=== PATIENT | male | born 1975 | race American Indian/Alaskan Native ===

== ENCOUNTER 2019-01-02 14:56 | Inpatient (IN) | payer MEDICARE ==
--- NOTE | 2019-01-02 15:50 | Event Note ---
ED Screening Note ED Screening Note: cough, sneezing, body aches last night vomiting and diarrhea- 2 episodes of each no sick contacts +chills missed his dialysis treatment, states he last went on friday This initial assessment/diagnostic orders/clinical plan/treatment(s) is/are subject to change based on patients health status, clinical progression and re- assessment by fellow clinical providers in the ED. Further treatment and workup at subsequent clinical providers discretion. Patient/guardian urged not to elope from the ED as their condition may be serious if not clinically assessed and managed. Initial orders include: labs, flu swab
[2019-01-02 16:36] LABS: Basophils # (Auto) 0.1 K/mm3 (0.0-0.1); Basophils % (Auto) 0.8 % (0.0-1.8); Eosinophils # (Auto) 0.3 K/mm3 (0.0-0.4); Eosinophils % (Auto) 4.3 % (0.0-4.3); Hematocrit 36.7 % (35.5-45.6); Lymphocytes # (Auto) 1.6 K/mm3 (1.2-5.4); Lymphocytes % (Auto) 25.1 % (13.4-35.0); Mean Corpuscular HGB Conc 33 % (32-34); Mean Corpuscular Volume 94 fl (84-94); Monocytes # (Auto) 0.6 K/mm3 (0.0-0.8); Monocytes % (Auto) 8.9 % (0.0-7.3); Platelet Count 147 K/mm3 (140-440)
[2019-01-02 16:39] LABS: Calcium 9.2 mg/dL (8.4-10.2)
--- NOTE | 2019-01-02 16:41 | Event Note ---
Date of service: 01/02/19 Face to Face: This is a 43-year-old gentleman, not known to this provider previously, presenting to the ER with symptoms consistent with dialysis noncompliance. Endorses malaise, fatigue, nausea, cramping, generalized weakness. Reports that his last dialysis session was , over a week ago. He is found to be hypertensive, acidotic, and hyperkalemic. He meets criteria for hospitalization for emergent hemodialysis. We counseled the patient's remain compliant with his outpatient dialysis sessions. He is clinically sober at this time, and currently playing on a cellular phone. Nephrology was contacted by my nurse practitioner juanpablo, and the Hospital physician, Dr. Celsa Mast accepted the patient to the medical service for hypertensive urgency, hyperkalemia, dialysis noncompliance, metabolic acidosis. Vital Signs 01/02/19 01/02/19 15:12 16:28 Temperature 97.7 F 98.3 F Pulse Rate 72 66 Respiratory 17 17 Rate Blood Pressure 179/111 Blood Pressure 180/115 [Left] O2 Sat by Pulse 99 100 Oximetry Lab Results 01/02/19 01/02/19 01/02/19 Range/Units 15:50 16:01 16:01 WBC 6.3 (4.5-11.0) K/mm3 RBC 3.90 (3.65-5.03) M/mm3 Hgb 12.0 (11.8-15.2) gm/dl Hct 36.7 (35.5-45.6) % MCV 94 (84-94) fl MCH 31 (28-32) pg MCHC 33 (32-34) % RDW 14.0 (13.2-15.2) % Plt Count 147 (140-440) K/mm3 Lymph % (Auto) 25.1 (13.4-35.0) % [place] % (Auto) 8.9 H (0.0-7.3) % Eos % (Auto) 4.3 (0.0-4.3) % Baso % (Auto) 0.8 (0.0-1.8) % Lymph # 1.6 (1.2-5.4) K/mm3 [place] # 0.6 (0.0-0.8) K/mm3 Eos # 0.3 (0.0-0.4) K/mm3 Baso # 0.1 (0.0-0.1) K/mm3 Seg Neutrophils % 60.9 (40.0-70.0) % Seg Neutrophils # 3.8 (1.8-7.7) K/mm3 Sodium 141 (137-145) mmol/L Potassium 5.4 H (3.6-5.0) mmol/L Chloride 107.8 H (98-107) mmol/L Carbon Dioxide 16 L (22-30) mmol/L Anion Gap 23 mmol/L BUN 71 H (9-20) mg/dL Creatinine 10.8 H (0.8-1.5) mg/dL Estimated GFR 5 ml/min BUN/Creatinine Ratio 7 % Glucose 88 (75-100) mg/dL Calcium 9.2 (8.4-10.2) mg/dL Influenza A (Rapid) Negative (Negative) Influenza B (Rapid) Negative (Negative)
[2019-01-02] MEDS ORDERED: hydrALAZINE 20 MG/1 ML INJ IV ONE (16:49)
[2019-01-02] MEDS ORDERED: ONDANSETRON 4 MG ODT TAB PO PRN (16:49)
--- NOTE | 2019-01-02 16:52 | Emergency Department Report ---
ED N/V/D HPI - General Chief complaint: Nausea/Vomiting/Diarrhea Stated complaint: COUGH DIARRHEA VOMITING Time Seen by Provider: 01/02/19 15:48 Source: patient Mode of arrival: Ambulatory Limitations: No Limitations - History of Present Illness MD complaint: nausea, vomiting (x 2), diarrhea (multiple times) -: Sudden, Last night Description of Vomiting: food contents Description of Diarrhea: green Radiation: none Severity: moderate Consistency: intermittent Improves with: none Worsens with: none Associated Symptoms: myalgias, malaise, nausea/vomiting - Related Data Allergies Allergy/AdvReac Type Severity Reaction Status Date / Time No Known Allergies Allergy Unverified 01/02/19 15:19 ED Review of Systems ROS: Stated complaint: COUGH DIARRHEA VOMITING Other details as noted in HPI Comment: All other systems reviewed and negative Gastrointestinal: nausea, vomiting. denies: abdominal pain Musculoskeletal: myalgia Neurological: headache ED Past Medical Hx - Past Medical History Additional medical history: PT ON DIAYLISIS ON Fri AND SAT - Surgical History Past Surgical History?: No - Social History Smoking Status: Never Smoker ED Physical Exam - General Limitations: No Limitations General appearance: alert, in no apparent distress - Head Head exam: Present: atraumatic - Eye Eye exam: Present: other (right cornea cloudy ) - Neck Neck exam: Present: full ROM - Respiratory Respiratory exam: Present: normal lung sounds bilaterally. Absent: wheezes, rales, rhonchi - GI/Abdominal GI/Abdominal exam: Present: soft, normal bowel sounds. Absent: distended, tenderness, guarding - Rectal Rectal exam: Present: deferred - Expanded Upper Extremity Exam Right Upper Arm exam: Present: other (right forearm fistula + bruit + shrill) - Psychiatric Psychiatric exam: Present: normal affect - Skin Skin exam: Present: warm, dry, intact, normal color. Absent: cyanosis, diaphoretic ED Course Vital Signs 01/02/19 01/02/19 15:12 16:28 Temperature 97.7 F 98.3 F Pulse Rate 72 66 Respiratory 17 17 Rate Blood Pressure 179/111 Blood Pressure 180/115 [Left] O2 Sat by Pulse 99 100 Oximetry ED Medical Decision Making - Lab Data Result diagrams: 01/02/19 16:01 01/02/19 16:01 - Medical Decision Making This is a 43-year-old male. Presented to the emergency room with complaints of nausea vomiting,diarrhea, bodyaches and generalized weakness. Patient has a history of end-stage renal disease. Started dialysis March 2018. Dialyzed 3 d ays a week. He missed dialysis this week. States he had to work. He denies fever, chest pain and sob. Labs shows hyperkalemia, hyperchloremia,metabolic acidosis, Discussed with Dr Clements Decontaminator Discussed with Dr. Magaña. Bridge orders placed for [facility] admission Critical care attestation.: If time is entered above; I have spent that time in minutes in the direct care of this critically ill patient, excluding procedure time. ED Disposition Clinical Impression: Metabolic acidosis, Hyperkalemia, Hyperchloremia Disposition: OP ADMIT IP TO THIS HOSP Is pt being admited?: Yes Does the pt Need Aspirin: No Time of Disposition: 17:19
--- NOTE | 2019-01-02 17:38 | History and Physical Report ---
History of Present Illness Date of examination: 01/02/19 Date of admission: 01/02/2019 Chief complaint: Vomiting and diarrhea since yesterdayx multiple times Missed hemodialysis for 1 week History of present illness: 43-year-old -Congolese male with a history of hypertension, end-stage renal disease comes in for vomiting and diarrhea since yesterday. Patient missed dialysis for 1 week because of his working schedule and conflict with the schedule. Never tried peritoneal dialysis. No history of diabetes. 7 onset of vomiting and diarrhea since yesterday 3-4 times of Vomiting. Loose watery stools multiple times since yesterday. No known precipitating factor. No shortness of breath or chest pain. No recent travel. 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 This happened couple of years ago Past Medical History Additional medical history: PT ON DIAYLISIS ON Fri AND SAT Surgical History No Social History Smoking Status: Never Smoker Family history Htn Review of Systems ROS: Stated complaint: COUGH DIARRHEA VOMITING Other details as noted in HPI Comment: All other systems reviewed and negative Gastrointestinal: nausea, vomiting since yesterday multiple times denies: abdominal pain Musculoskeletal: myalgia Neurological: headache Comment: All other systems reviewed and negative Missed hemodialysis for 1 week Medications and Allergies Allergies Allergy/AdvReac Type Severity Reaction Status Date / Time No Known Allergies Allergy Unverified 01/02/19 15:19 Active Meds: Active Medications Ondansetron HCl (Zofran Odt) 4 mg PO Q6HR PRN PRN Reason: Nausea Exam - Constitutional Vitals: Temp Pulse Resp BP Pulse Ox 98.3 F 66 17 180/115 100 01/02/19 16:28 01/02/19 16:28 01/02/19 16:28 01/02/19 16:28 01/02/19 16:28 General appearance: Present: no acute distress, well-nourished - EENT Eyes: Present: PERRL ENT: hearing intact, clear oral mucosa - Neck Neck: Present: supple, normal ROM - Respiratory Respiratory effort: normal Respiratory: bilateral: CTA - Cardiovascular Heart rate: 64 Rhythm: regular Heart Sounds: Present: S1 & S2. Absent: rub, click - Extremities Extremities: pulses symmetrical, No edema Peripheral Pulses: within normal limits - Abdominal General gastrointestinal: Present: soft, non-tender, non-distended, normal bowel sounds Male genitourinary: Present: normal - Integumentary Integumentary: Present: clear, warm, dry - Musculoskeletal Musculoskeletal: gait normal, strength equal bilaterally - Psychiatric Psychiatric: appropriate mood/affect, intact judgment & insight - Neurologic Neurologic: CNII-XII intact, moves all extremities Results - Labs CBC & Chem 7: 01/02/19 16:01 01/02/19 16:01 Labs: Laboratory Last Values WBC 6.3 K/mm3 (4.5-11.0) 01/02/19 16: RBC 3.90 M/mm3 (3.65-5.03) 01/02/19 16: Hgb 12.0 gm/dl (11.8-15.2) 01/02/19 16: Hct 36.7 % (35.5-45.6) 01/02/19 16:01 MCV 94 fl (84-94) 01/02/19 16: MCH 31 pg (28-32) 01/02/19 16:01 MCHC 33 % (32-34) 01/02/19 16:01 RDW 14.0 % (13.2-15.2) 01/02/19 16:01 Plt Count 147 K/mm3 (140-440) 01/02/19 16:01 Lymph % (Auto) 25.1 % (13.4-35.0) 01/02/19 16:01 [place] % (Auto) 8.9 % (0.0-7.3) H 01/02/19 16:01 Eos % (Auto) 4.3 % (0.0-4.3) 01/02/19 16:01 Baso % (Auto) 0.8 % (0.0-1.8) 01/02/19 16:01 Lymph # 1.6 K/mm3 (1.2-5.4) 01/02/19 16:01 [place] # 0.6 K/mm3 (0.0-0.8) 01/02/19 16:01 Eos # 0.3 K/mm3 (0.0-0.4) 01/02/19 16:01 Baso # 0.1 K/mm3 (0.0-0.1) 01/02/19 16:01 Seg Neutrophils % 60.9 % (40.0-70.0) 01/02/19 16:01 Seg Neutrophils # 3.8 K/mm3 (1.8-7.7) 01/02/19 16:01 Sodium 141 mmol/L (137-145) 01/02/19 16:01 Potassium 5.4 mmol/L (3.6-5.0) H 01/02/19 16:01 Chloride 107.8 mmol/L (98-107) H 01/02/19 16:01 Carbon Dioxide 16 mmol/L (22-30) L 01/02/19 16:01 Anion Gap 23 mmol/L 01/02/19 16:01 BUN 71 mg/dL (9-20) H 01/02/19 16:01 Creatinine 10.8 mg/dL (0.8-1.5) H 01/02/19 16:01 Estimated GFR 5 ml/min 01/02/19 16:01 BUN/Creatinine Ratio 7 % 01/02/19 16:01 Glucose 88 mg/dL (75-100) 01/02/19 16:01 Calcium 9.2 mg/dL (8.4-10.2) 01/02/19 16:01 Influenza A (Rapid) Negative (Negative) 01/02/19 15:50 Influenza B (Rapid) Negative (Negative) 01/02/19 15:50 Short CBC 01/02/19 Range/Units 16:01 WBC 6.3 (4.5-11.0) K/mm3 Hgb 12.0 (11.8-15.2) gm/dl Hct 36.7 (35.5-45.6) % Plt Count 147 (140-440) K/mm3 BMP 01/02/19 16:01 Sodium 141 Potassium 5.4 H Chloride 107.8 H Carbon Dioxide 16 L BUN 71 H Creatinine 10.8 H Glucose 88 Calcium 9.2 - Imaging and Cardiology EKG: report reviewed (normal sinus rhythm, heart rate of 64/m, left ventricular hypertrophy, abnormal T waves consider ischemia in aVL. ) Assessment and Plan Advance Directives: Yes (full code) VTE prophylaxis?: Chemical Plan of care discussed with patient/family: Yes - Patient Problems (1) Hypertensive emergency Status: Acute Plan to address problem: Patient not taking blood pressure medications adequately Patient initiated on valsartan 160 mg twice a day, Coreg 12.5 mg twice a day, and he'll take amlodipine 10 mg once a day. (2) Hyperkalemia Status: Acute Plan to address problem: Patient going for emergent hemodialysis IV calcium gluconate given in the emergency room Monitor potassium level (3) Metabolic acidosis Status: Acute Plan to address problem: Patient needs emergent hemodialysis (4) Acute gastroenteritis Status: Acute Plan to address problem: Viral--most probably Gentle IV hydration because the patient is a end-stage renal disease IV Zofran and IV Reglan IV Protonix Kaopectate 30 mL 4 times a day when necessary (5) End-stage renal disease needing dialysis Status: Chronic Plan to address problem: Patient missed dialysis for 1 week Patient counseled about not missing dialysis Emergent hemodialysis arranged with Dr. perales Current hypotension level (6) Blindness right eye category 3, normal vision left eye Status: Chronic Plan to address problem: Continue supportive care (7) DVT prophylaxis Status: Acute Plan to address problem: On heparin 5000 every 12 and GI prophylaxis
[2019-01-02] MEDS ORDERED: SODIUM CHLORIDE 0.9% 100 ML IV PRN (17:50)
[2019-01-02] MEDS ORDERED: ONDANSETRON 4 MG/2 ML INJ IV PRN (18:05)
[2019-01-02] MEDS ORDERED: METOCLOPRAMIDE 10 MG/2 ML INJ IV PRN (18:07)
[2019-01-02] MEDS ORDERED: HYDROmorphone 1 MG/1 ML INJ IV PRN (18:07)
[2019-01-02] MEDS ORDERED: ACETAMINOPHEN 325 MG TAB ONE (18:14)
[2019-01-02] MEDS ORDERED: hydrALAZINE 20 MG/1 ML INJ ONE (18:14)
[2019-01-02] MEDS: ACETAMINOPHEN 325 MG TAB PO PRN (18:17)
[2019-01-02] MEDS ORDERED: ACETAMINOPHEN 325 MG TAB PO PRN (18:28)
[2019-01-02] MEDS ORDERED: HYDROmorphone 1 MG/1 ML INJ ONE (18:29)
[2019-01-02 18:45] LABS: Hepatitis C Virus Antibody Non-Reactive (NonReactive)
[2019-01-02] MEDS ORDERED: SODIUM CHLORIDE 0.9% 1000 ML 1,000 ML IV SCH (19:00)
[2019-01-02] MEDS: amLODIPine 10 MG TAB PO SCH (19:00)
[2019-01-02] MEDS ORDERED: CALCIUM GLUCONATE 2,000 MG in SODIUM CHLORIDE 0.9% 100 ML IV ONE (19:04)
[2019-01-02 19:27] LABS: Hepatitis B Surface Antigen Non-Reactive (Negative)
[2019-01-02] MEDS: carvediloL 12.5 MG TAB PO SCH (23:05)
[2019-01-02] MEDS: VALSARTAN 160MG TAB PO SCH (23:05)
[2019-01-03 05:52] LABS: Basophils # (Auto) 0.1 K/mm3 (0.0-0.1); Basophils % (Auto) 0.9 % (0.0-1.8); Eosinophils # (Auto) 0.2 K/mm3 (0.0-0.4); Eosinophils % (Auto) 3.6 % (0.0-4.3); Hematocrit 37.3 % (35.5-45.6); Hemoglobin 12.6 gm/dl (11.8-15.2); Lymphocytes # (Auto) 1.6 K/mm3 (1.2-5.4); Mean Corpuscular HGB Conc 34 % (32-34); Mean Corpuscular Volume 93 fl (84-94); Monocytes # (Auto) 0.5 K/mm3 (0.0-0.8); Monocytes % (Auto) 8.9 % (0.0-7.3); Platelet Count 153 K/mm3 (140-440); Red Blood Count 4.02 M/mm3 (3.65-5.03); Red Cell Distribution Width 13.7 % (13.2-15.2)
[2019-01-03 06:19] LABS: Albumin 4.5 g/dL (3.9-5)
[2019-01-03] MEDS: ACETAMINOPHEN 325 MG TAB PO PRN (09:03)
[2019-01-03] MEDS: VALSARTAN 160MG TAB PO SCH ×2 (09:03→21:39)
[2019-01-03] MEDS: amLODIPine 10 MG TAB PO SCH (09:03)
[2019-01-03] MEDS: carvediloL 12.5 MG TAB PO SCH ×2 (09:03→21:39)
--- NOTE | 2019-01-03 09:48 | Consultation ---
History of Present Illness - Reason for Consult Consult date: 01/03/19 end stage renal disease, hyperkalemia - History of Present Illness The patient is a 43 YO AAM with a history of Hypertension, R eye blindness and ESRD on hemodialysis (TTS) who presented to [facility] ED yesterday with c/o nausea, vomiting and diarrhea of one day duration. Pt also endorses malaise, fatigue and feeling tired. Patient missed dialysis for more than a week because of his working schedule. His last dialysis was last . Pt denies abd pain, dizziness, shortness of breath, chest pain, fever, chills or leg swelling. His BP waa high. Labs significant for K 5.4 and bicarb 16. Nephrology was consulted for further evaluation. Past History Past Medical History: dialysis, ESRD, hypertension Medications and Allergies Allergies Allergy/AdvReac Type Severity Reaction Status Date / Time No Known Allergies Allergy Unverified 01/02/19 15:19 Home Medications Medication Instructions Recorded Confirmed Last Taken Type Lisinopril 20 mg PO DAILY 01/03/19 01/03/19 Unknown History amLODIPine 10 mg PO DAILY 01/03/19 01/03/19 Unknown History Active Meds: Active Medications Acetaminophen (Tylenol) 650 mg PO Q4H PRN PRN Reason: Pain MILD(1-3)/Fever >100.5/FOREMAN Last Admin: 01/03/19 09:03 Dose: 650 mg Documented by: Acetaminophen (Tylenol) 650 mg PO Q6HR PRN PRN Reason: PAIN Amlodipine Besylate (Amlodipine) 10 mg PO QDAY [facility] Last Admin: 01/03/19 09:03 Dose: 10 mg Documented by: Carvedilol (Coreg) 12.5 mg PO BID [facility] Last Admin: 01/03/19 09:03 Dose: 12.5 mg Documented by: Hydromorphone HCl (Dilaudid) 0.5 mg IV Q3H PRN PRN Reason: Pain , Severe (7-10) Last Admin: 01/02/19 18:35 Dose: 0.5 mg Documented by: Sodium Chloride (Nacl 0.9%) 100 mls @ 999 mls/hr IV RAKEL PRN PRN Reason: Hypotension Sodium Chloride (Nacl 0.9% 1000 Ml) 1,000 mls @ 75 mls/hr IV DIRECT [facility] Stop: 01/03/19 11:00 Metoclopramide HCl (Reglan) 10 mg IV Q6H PRN PRN Reason: Nausea And Vomiting Ondansetron HCl (Zofran Odt) 4 mg PO Q6HR PRN PRN Reason: Nausea Ondansetron HCl (Zofran) 4 mg IV Q3H PRN PRN Reason: Nausea And Vomiting Sodium Chloride (Sodium Chloride Flush Syringe 10 Ml) 10 ml IV BID [facility] Last Admin: 01/02/19 23:05 Dose: 10 ml Documented by: Sodium Chloride (Sodium Chloride Flush Syringe 10 Ml) 10 ml IV PRN PRN PRN Reason: LINE FLUSH Valsartan (Diovan) 160 mg PO BID [facility] Last Admin: 01/03/19 09:03 Dose: 160 mg Documented by: Review of Systems Constitutional: fatigue, no weight loss, no weight gain, no fever, no chills, no anorexia, no weakness, no malaise, no poor appetite Eyes: right: loss of vision Cardiovascular: high blood pressure, no chest pain, no orthopnea, no edema, no syncope, no lightheadedness, no shortness of breath, no dyspnea on exertion, no leg edema Respiratory: no cough, no hemoptysis, no shortness of breath Gastrointestinal: nausea, vomiting, diarrhea, no abdominal pain, no hematemesis, no melena, no hematochezia, no jaundice Genitourinary Male: no dysuria, no hematuria, no urinary retention Rectal: no bleeding Musculoskeletal: no morning stiffness, no muscle cramps, no myalgias Integumentary: no redness, no sores, no wounds, no jaundice Neurological: loss of vision (R eye), no syncope, no convulsions, no aphasia, no confusion, no memory loss Exam - Vital Signs Vital signs: Vital Signs Temp Pulse Resp BP Pulse Ox 97.7 F 72 17 179/111 99 01/02/19 15:12 01/02/19 15:12 01/02/19 15:12 01/02/19 15:12 01/02/19 15:12 - General Appearance General appearance: well-developed, well-nourished, appears stated age, other (no distress) EENT: ATNC, sclerotic cornea (R eye) Neck: Present: neck supple, trachea midline Respiratory: Clear to Ascultation Heart: regular, S1S2, no murmurs Gastrointestinal: Present: normoactive bowel sounds. Absent: tenderness, distended Integumentary: no rash, warm and dry Neurologic: no asterixis, alert and oriented x3, other (R eye blind) Musculoskeletal: Present: other (no edema) Results - Lab Results 01/03/19 04:50 01/03/19 04:50 Most recent lab results Calcium 9.0 mg/dL (8.4-10.2) 01/03/19 04:50 Assessment and Plan 1. ESRD: Patient was admitted after he missed the last 3 sessions of hemodialysis. S/p urgent hemodialysis yesterday. Continue hemodialysis three times a week, TTS schedule. Hemodialysis: 01/02. 2. FEN: Hyperkalemia, s/p HD. Metabolic acidosis, s/p HD. Volume overload, s/p UF with HD. Renal diet. Monitor. 3. Uncontrolled HTN: BP is better.
[2019-01-03] MEDS ORDERED: BISMUTH SUBSALICYLATE 262 MG/15 ML ORAL LIQD PO PRN (09:50)
--- NOTE | 2019-01-03 12:01 | Progress Note ---
Assessment and Plan Assessment and plan: -- Hypertensive emergency: Present on admission Status: Acute Patient noncompliant with blood pressure medications , and hemodialysis Mild improvement , continue current antihypertensives valsartan 160 mg twice a day, Coreg 12.5 mg twice a day, amlodipine 10 mg once a day. When necessary IV hydralazine --Hyperkalemia; improved Status: Acute Patient received emergent hemodialysis IV calcium gluconate given in the emergency room Monitor electrolytes --Metabolic acidosis Status: Acute HD as per schedule nephrology following --Acute gastroenteritis Status: Acute Probably Viral, Gentle IV hydration and antiemetic Protonix, antidiarrheals, supportive care -- End-stage renal disease needing dialysis Status: Chronic Patient missed dialysis for 1 week Hemodialysis per schedule, nephrology following -- Blindness right eye category 3, normal vision left eye Status: Chronic Supportive care --DVT prophylaxis Status: Acute On heparin 5000 every 12 hrs. --Medical noncompliance: patient strongly advised and encouraged to adhere to the medications, diet, hemodialysis and follow-up visits. Patient verbalized understanding Monitor closely and adjust management as needed Plan of care is reviewed with the patient and his nurse Nephrology evaluation and recommendations noted and appreciated Possible discharge in 1-2 days if stable History Interval history: Patient seen and examined this morning medical records reviewed Patient admitted with worsening shortness of breath secondary to fluid overload secondary to missed dialysis for 1 week Received dialysis yesterday today patient feels slightly better No new complaints vital signs reviewed Hospitalist Physical - Constitutional Vitals: Temp Pulse Resp BP Pulse Ox 98.2 F 76 16 137/102 99 01/03/19 04:45 01/03/19 04:45 01/03/19 04:45 01/03/19 04:45 01/03/19 04:45 General appearance: Present: no acute distress, well-nourished, obese - EENT Eyes: Present: PERRL, EOM intact - Neck Neck: Present: supple, normal ROM - Respiratory Respiratory effort: normal Respiratory: bilateral: diminished, negative: rales, rhonchi, wheezing - Cardiovascular Rhythm: regular Heart Sounds: Present: S1 & S2 - Extremities Extremities: no ischemia, No edema - Abdominal General gastrointestinal: soft, non-tender, non-distended, normal bowel sounds - Integumentary Integumentary: Present: clear, warm - Psychiatric Psychiatric: appropriate mood/affect, cooperative - Neurologic Neurologic: moves all extremities Results - Labs CBC & Chem 7: 01/03/19 04:50 01/03/19 04:50 Labs: Laboratory Last Values WBC 6.0 K/mm3 (4.5-11.0) 01/03/19 04:50 RBC 4.02 M/mm3 (3.65-5.03) 01/03/19 04:50 Hgb 12.6 gm/dl (11.8-15.2) 01/03/19 04:50 Hct 37.3 % (35.5-45.6) 01/03/19 04:50 MCV 93 fl (84-94) 01/03/19 04:50 MCH 31 pg (28-32) 01/03/19 04:50 MCHC 34 % (32-34) 01/03/19 04:50 RDW 13.7 % (13.2-15.2) 01/03/19 04:50 Plt Count 153 K/mm3 (140-440) 01/03/19 04:50 Lymph % (Auto) 27.0 % (13.4-35.0) 01/03/19 04:50 [place] % (Auto) 8.9 % (0.0-7.3) H 01/03/19 04:50 Eos % (Auto) 3.6 % (0.0-4.3) 01/03/19 04:50 Baso % (Auto) 0.9 % (0.0-1.8) 01/03/19 04:50 Lymph # 1.6 K/mm3 (1.2-5.4) 01/03/19 04:50 [place] # 0.5 K/mm3 (0.0-0.8) 01/03/19 04:50 Eos # 0.2 K/mm3 (0.0-0.4) 01/03/19 04:50 Baso # 0.1 K/mm3 (0.0-0.1) 01/03/19 04:50 Seg Neutrophils % 59.6 % (40.0-70.0) 01/03/19 04:50 Seg Neutrophils # 3.6 K/mm3 (1.8-7.7) 01/03/19 04:50 Sodium 141 mmol/L (137-145) 01/03/19 04:50 Potassium 4.8 mmol/L (3.6-5.0) 01/03/19 04:50 Chloride 99.9 mmol/L (98-107) 01/03/19 04:50 Carbon Dioxide 24 mmol/L (22-30) D 01/03/19 04:50 Anion Gap 22 mmol/L 01/03/19 04:50 BUN 44 mg/dL (9-20) H 01/03/19 04:50 Creatinine 8.0 mg/dL (0.8-1.5) H 01/03/19 04:50 Estimated GFR 9 ml/min 01/03/19 04:50 BUN/Creatinine Ratio 6 % 01/03/19 04:50 Glucose 79 mg/dL (75-100) 01/03/19 04:50 Hemoglobin A1c 5.2 % (4-6) 01/02/19 16:01 Calcium 9.0 mg/dL (8.4-10.2) 01/03/19 04:50 Total Bilirubin 0.30 mg/dL (0.1-1.2) 01/03/19 04:50 AST 10 units/L (5-40) 01/03/19 04:50 ALT 6 units/L (7-56) L 01/03/19 04:50 Alkaline Phosphatase 54 units/L (35-129) 01/03/19 04:50 Total Protein 7.8 g/dL (6.3-8.2) 01/03/19 04:50 Albumin 4.5 g/dL (3.9-5) 01/03/19 04:50 Albumin/Globulin Ratio 1.4 % 01/03/19 04:50 Hepatitis A IgM Ab Non-reactive (NonReactive) 01/02/19 17:55 Hep Bs Antigen Non-reactive (Negative) 01/02/19 17:55 Hep B Core IgM Ab Non-reactive (NonReactive) 01/02/19 17:55 Hepatitis C Antibody Non-reactive (NonReactive) 01/02/19 17:55 Influenza A (Rapid) Negative (Negative) 01/02/19 15:50 Influenza B (Rapid) Negative (Negative) 01/02/19 15:50 Active Medications - Current Medications Current Medications: Generic Name Dose Route Start Last Admin Trade Name Freq PRN Reason Stop Dose Admin Acetaminophen 650 mg 01/02/19 18:28 Tylenol PO Q6HR PRN PAIN Amlodipine Besylate 10 mg 01/02/19 19:00 01/03/19 09:03 Amlodipine PO 10 mg QDAY CHAITANYA Administration Bismuth Subsalicylate 262 mg 01/03/19 09:50 Pepto Bismol PO Q6H PRN Diarrhea Carvedilol 12.5 mg 01/02/19 22:00 01/03/19 09:03 Coreg PO 12.5 mg BID CHAITANYA Administration Heparin Sodium (Porcine) 5,000 unit 01/03/19 22:00 Heparin SUB-Q Q12HR CHAITANYA Hydromorphone HCl 0.5 mg 01/02/19 18:07 01/02/19 18:35 Dilaudid IV 0.5 mg Q3H PRN Administration Pain , Severe (7-10) Sodium Chloride 100 mls @ 999 mls/hr 01/02/19 17:50 Nacl 0.9% IV RAKEL PRN Hypotension Metoclopramide HCl 10 mg 01/02/19 18:07 Reglan IV Q6H PRN Nausea And Vomiting Ondansetron HCl 4 mg 01/02/19 16:49 Zofran Odt PO Q6HR PRN Nausea Ondansetron HCl 4 mg 01/02/19 18:05 Zofran IV Q3H PRN Nausea And Vomiting Sodium Chloride 10 ml 01/02/19 22:00 01/02/19 23:05 Sodium Chloride Flush Syringe 10 Ml IV 10 ml BID CHAITANYA Administration Sodium Chloride 10 ml 01/02/19 18:05 Sodium Chloride Flush Syringe 10 Ml IV PRN PRN LINE FLUSH Valsartan 160 mg 01/02/19 19:03 01/03/19 09:03 Diovan PO 160 mg BID CHAITANYA Administration Nutrition/Malnutrition Assess - Dietary Evaluation Nutrition/Malnutrition Findings: Nutrition Notes Start: 01/03/19 11:12 Freq: Status: Active Protocol: Document 01/03/19 11:12 LP (Rec: 01/03/19 11:14 LP [email or web address]) Nutrition Notes Need for Assessment generated from: MD Order Initial or Follow up Brief Note Current Diagnosis CKD (stage V CKD),Hypertension Other Pertinent Diagnosis on HD, gastroenteritis Current Diet Clear liquid Labs/Tests BUN 44 Cr 8 Pertinent Medications NS at 75ml/hr Height 6 ft Weight 107.2 kg [place] Body Weight (kg) 80.90 BMI 32.0 Subjective/Other Information Consult for oral supplement. Pt states he only had one episode of N/V at night. Pt states he is hungry and wants diet advanced. Pt denies wt changes and states eating well [employer]. Nutrition Intervention Change Diet Order: Advance diet to renal Follow-Up By: 01/07/19 Additional Comments Follow for intakes
[2019-01-03] MEDS: HEPARIN 5,000 UNIT/1 ML VIAL SUB-Q SCH (21:39)
[2019-01-04 06:19] LABS: Calcium 8.8 mg/dL (8.4-10.2)
--- NOTE | 2019-01-04 09:22 | Progress Note ---
Assessment and Plan 1. ESRD: Patient was admitted after he missed the last 3 sessions of hemodialysis. S/p urgent hemodialysis 01/02. Continue hemodialysis three times a week. Hemodialysis: 01/02, 01/04. 2. FEN: Hyperkalemia, s/p HD. Metabolic acidosis, HD today. Volume overload, s/p UF with HD. Renal diet. Monitor. 3. Uncontrolled HTN: BP is better. Examination: General appearance: well-developed, well-nourished, appears stated age, no distress HEENT: ATNC, sclerotic cornea (R eye) Neck: neck supple, trachea midline Respiratory: Clear to Ascultation Heart: regular, S1S2, no murmurs Gastrointestinal: soft, normoactive bowel sounds, not tenderness, not distended Integumentary: no rash, warm and dry Neurologic: no asterixis, alert and oriented x3, R eye blind Ext: no edema Hemodialysis access: R arm AVF Subjective Date of service: 01/04/19 Interval history: Patient was seen and examined at the bedside. Doing ok. Objective - Vital Signs Vital signs: Vital Signs - 12hr 01/03/19 01/03/19 01/04/19 21:37 22:26 05:41 Temperature 99.0 F 98.9 F 98.8 F Pulse Rate 80 75 69 Respiratory 18 18 20 Rate Blood Pressure 124/81 116/77 139/89 O2 Sat by Pulse 97 97 96 Oximetry - Lab 01/03/19 04:50 01/04/19 05:20 Most recent lab results Calcium 8.8 mg/dL (8.4-10.2) 01/04/19 05:20 Medications & Allergies - Medications Allergies/Adverse Reactions: Allergies No Known Allergies Allergy (Unverified 01/02/19 15:19) Home Medications: Home Medications Medication Instructions Recorded Confirmed Last Taken Type Lisinopril 20 mg PO DAILY 01/03/19 01/03/19 Unknown History amLODIPine 10 mg PO DAILY 01/03/19 01/03/19 Unknown History Active Medications: Generic Name Dose Route Start Last Admin Trade Name Freq PRN Reason Stop Dose Admin Acetaminophen 650 mg 01/02/19 18:28 01/03/19 16:01 Tylenol PO 650 mg Q6HR PRN Administration PAIN Amlodipine Besylate 10 mg 01/02/19 19:00 01/03/19 09:03 Amlodipine PO 10 mg QDAY CHAITANYA Administration Bismuth Subsalicylate 262 mg 01/03/19 09:50 Pepto Bismol PO Q6H PRN Diarrhea Carvedilol 12.5 mg 01/02/19 22:00 01/03/19 21:39 Coreg PO 12.5 mg BID CHAITANYA Administration Heparin Sodium (Porcine) 5,000 unit 01/03/19 22:00 01/03/19 21:39 Heparin SUB-Q 5,000 unit Q12HR CHAITANYA Administration Hydromorphone HCl 0.5 mg 01/02/19 18:07 01/02/19 18:35 Dilaudid IV 0.5 mg Q3H PRN Administration Pain , Severe (7-10) Sodium Chloride 100 mls @ 999 mls/hr 01/02/19 17:50 Nacl 0.9% IV RAKEL PRN Hypotension Lisinopril 20 mg 01/04/19 10:00 Zestril PO QDAY CHAITANYA Metoclopramide HCl 10 mg 01/02/19 18:07 Reglan IV Q6H PRN Nausea And Vomiting Ondansetron HCl 4 mg 01/02/19 16:49 Zofran Odt PO Q6HR PRN Nausea Ondansetron HCl 4 mg 01/02/19 18:05 Zofran IV Q3H PRN Nausea And Vomiting Sodium Chloride 10 ml 01/02/19 22:00 01/03/19 21:41 Sodium Chloride Flush Syringe 10 Ml IV 10 ml BID CHAITANYA Administration Sodium Chloride 10 ml 01/02/19 18:05 Sodium Chloride Flush Syringe 10 Ml IV PRN PRN LINE FLUSH Valsartan 160 mg 01/02/19 19:03 01/03/19 21:39 Diovan PO 160 mg BID CHAITANYA Administration
[2019-01-04] MEDS: carvediloL 12.5 MG TAB PO SCH (09:48)
[2019-01-04] MEDS: amLODIPine 10 MG TAB PO SCH (09:48)
[2019-01-04] MEDS: VALSARTAN 160MG TAB PO SCH (09:48)
[2019-01-04] MEDS: HEPARIN 5,000 UNIT/1 ML VIAL SUB-Q SCH (09:48)
[2019-01-04] MEDS ORDERED: NON-FORMULARY EACH (Lisinopril 20 MG) PO SCH (10:00)
[2019-01-04] MEDS ORDERED: LISINOPRIL 20 MG TAB PO SCH (10:00)
[2019-01-04] MEDS ORDERED: NON-FORMULARY EACH (Amlodipine 10 MG) PO SCH (10:00)
[2019-01-04] MEDS ORDERED: SODIUM CHLORIDE 0.9% 100 ML IV PRN (10:09)
[2019-01-04] MEDS ORDERED: HEPARIN 10,000 UNITS/10 ML VIAL IV PRN ×2 (10:09)
[2019-01-04] MEDS ORDERED: METOCLOPRAMIDE 10 MG/2 ML INJ IV PRN (13:00)
--- NOTE | 2019-01-04 13:00 | Discharge Summary ---
Providers - Providers Date of Admission: 01/04/19 08:17 Date of discharge: 01/04/19 Attending physician: IVANIA LANDIN 01/02/19 Consult to Case Management [CONS] Routine Services Needed at Discharge: Home Health Services Notified:: COPY LEFT FOR CM 01/02/19 16:49 Consult to Physician [CONS] Urgent Comment: Consulting Provider: ALISA BERMUDEZ Physician Instructions: Reason For Exam: esrd needs hd 01/02/19 18:10 Consult to Dietitian/Nutrition [CONS] Routine Physician Instructions: Reason For Exam: Reason for Consult: Pt needs oral supplement Primary care physician: BI DEVELOPER Hospitalization Condition: Stable Disposition: DC-01 TO HOME OR SELFCARE Time spent for discharge: 32 min Core Measure Documentation - Palliative Care Palliative Care/ Comfort Measures: Not Applicable - Core Measures Any of the following diagnoses?: none Exam - Constitutional Vitals: Temp Pulse Resp BP Pulse Ox 98.1 F 74 20 122/77 97 01/04/19 11:55 01/04/19 11:55 01/04/19 11:55 01/04/19 11:55 01/04/19 11:55 General appearance: Present: no acute distress, well-nourished - EENT Eyes: Present: PERRL, EOM intact - Neck Neck: Present: supple, normal ROM - Respiratory Respiratory effort: normal, labored - Cardiovascular Rhythm: regular Heart Sounds: Present: S1 & S2 - Extremities Extremities: no ischemia, pulses intact - Abdominal General gastrointestinal: Present: soft, non-tender, non-distended, normal bowel sounds - Integumentary Integumentary: Present: clear, warm - Musculoskeletal Musculoskeletal: strength equal bilaterally, generalized weakness - Psychiatric Psychiatric: appropriate mood/affect, cooperative - Neurologic Neurologic: CNII-XII intact, moves all extremities Plan Activity: no restrictions Diet: renal Additional Instructions: F/U renal and HD per schedule. Exercise as tolerated and weight reduction when medically stable Follow up with: CLARISSA BURGOS MD [Primary Care Provider] - 7 Days ALISA BERMUDEZ MD [Staff Physician] - 7 Days Prescriptions: amLODIPine 10 mg PO DAILY #30 carvediloL [Coreg] 12.5 mg PO BID #60 tablet Valsartan [Diovan] 160 mg PO BID #60 tablet oxyCODONE /ACETAMINOPHEN [Percocet 5/325] 1 tab PO BID PRN #6 tablet PRN Reason: Pain , Severe (7-10)
--- NOTE | 2019-01-04 13:26 | XRay Report ---
CHEST 1 VIEW INDICATION: Hemodialysis requirement to r/o TB.. COMPARISON: None FINDINGS: Support devices: None. Heart: Within normal limits. Lungs/Pleura: No acute air space or interstitial disease. Additional findings: None. IMPRESSION: No acute findings. Signer Name: Marito Justin Jr, MD Signed: 01/04/2019 1:22 PM Workstation Name: [id number]
[2019-01-04 22:24] VITALS: BP 144/82
== END 2019-01-04 21:10 | disposition home or self-care (01) | DRG 640 ==
LOC: ED 14:56 → 3A 17:12 → OBSVTOIN 01-04 08:17
PROVIDERS: ADMIT Internal Medicine; ATTEND Internal Medicine
PROC: 5A1D70Z Performance of Urinary Filtration, Intermittent, Less than 6 Hours Per Day (ICD-10-PCS; 2019-01-02)
PROC: 5A1D70Z Performance of Urinary Filtration, Intermittent, Less than 6 Hours Per Day (ICD-10-PCS; principal; 2019-01-04)
DX: E87.5 Hyperkalemia (principal); N18.6 End stage renal disease; I13.11 Hypertensive heart and chronic kidney disease without heart failure, with stage 5 chronic kidney disease, or end stage renal disease; I16.1 Hypertensive emergency; E87.2 Acidosis; K52.9 Noninfective gastroenteritis and colitis, unspecified; E87.8 Other disorders of electrolyte and fluid balance, not elsewhere classified; H54.0X33 Blindness right eye category 3, blindness left eye category 3; Z99.2 Dependence on renal dialysis; Z91.15 Patient's noncompliance with renal dialysis; Z82.49 Family history of ischemic heart disease and other diseases of the circulatory system; Z79.899 Other long term (current) drug therapy
CPT/HCPCS: 36415; 71045; 80048; 80053; 80074; 83036; 85025; 87116; 87400; 93005; 93010; G0378; J0360; J0610; J1170; J1644